=== PATIENT | male | born 1950 | race Caucasian/White ===

== ENCOUNTER 2017-12-05 13:54 | Inpatient (IN) | payer MEDICARE, OTHER ==
[~2017-12-05] VITALS: Ht 182.9 cm; Wt 77.3 kg
[2017-12-05 14:30] LABS: BASOPHILS % (AUTO) 0.2 % (0-1); EOSINOPHILS # (AUTO) 0.2 X10'3 (0-0.9); EOSINOPHILS % (AUTO) 2.1 % (0-6); HEMATOCRIT 36.3 % (42.0-52.0); HEMOGLOBIN 12.4 g/dl (14.0-17.9); LYMPHOCYTES % (AUTO) 8.5 % (21-51); MEAN CORPUSCULAR HEMOGLOBIN 29.8 PG (27.0-31.0); MEAN CORPUSCULAR HGB CONC 34.1 % (33.0-36.5); MEAN CORPUSCULAR VOLUME 87.4 FL (78-98); MEAN PLATELET VOLUME 7.5 FL (7.4-10.4); MONOCYTES # (AUTO) 0.7 X10'3 (0-0.9); MONOCYTES % (AUTO) 5.8 % (2-12); NEUTROPHILS # (AUTO) 9.6 X10'3 (1.8-7.7); NEUTROPHILS % (AUTO) 83.4 % (42-75); PLATELET COUNT 258 X10'3 (140-440); RED BLOOD COUNT 4.15 X10'6 (4.70-6.10); RED CELL DISTRIBUTION WIDTH 13.4 % (11.5-14.5); WHITE BLOOD COUNT 11.6 X10'3 (4.5-11.0)
[2017-12-05 14:41] LABS: PARTIAL THROMBOPLASTIN TIME 24 SECONDS (22-32); PROTHROMBIN TIME 10.1 SECONDS (9.0-12.0)
[2017-12-05 14:46] LABS: ALANINE AMINOTRANSFERASE 42 U/L (12-78); ALBUMIN/GLOBULIN RATIO 1.1 (1.1-1.5); ALKALINE PHOSPHATASE 113 IU/L (46-116); ANION GAP 11 (8-16); ASPARTATE AMINO TRANSFERASE 61 U/L (10-37); BILIRUBIN,TOTAL 0.2 MG/DL (0.1-1.0); BLOOD UREA NITROGEN 32 MG/DL (7-18); CALCIUM 8.7 MG/DL (8.5-10.1); CHLORIDE 105 MMOL/L (99-107); CREATININE 2.28 MG/DL (0.60-1.10); GLUCOSE 112 MG/DL (70-104); POTASSIUM 3.8 MMOL/L (3.5-5.1); SODIUM 140 MMOL/L (135-145); TOTAL CARBON DIOXIDE 23.8 MMOL/L (24-32); TOTAL PROTEIN 7.6 G/DL (6.4-8.2); eGFR 29 ML/MIN
[2017-12-05] MEDS ORDERED: magnesium hydroxide 30ml (MOM) UD suspension PO PRN (16:10)
[2017-12-05] MEDS ORDERED: aspirin 81mg tablet.DR PO ONE (16:10)
[2017-12-05] MEDS ORDERED: ondansetron/PF 4mg/2ml inj IV PRN (16:10)
[2017-12-05] MEDS ORDERED: morphine 4 MG/ML inj SYRINge IV PRN (16:10)
[2017-12-05] MEDS ORDERED: mag hydrox/Alum hydrox/simeth 30ml oral suspension PO PRN (16:10)
[2017-12-05] MEDS ORDERED: acetaminophen 325mg tablet PO PRN (16:10)
[2017-12-05] MEDS: pantoprazole 40mg Tablet.DR PO SCH (16:20)
[2017-12-05] MEDS ORDERED: DOCU-261 PO (17:18)
[2017-12-05] MEDS ORDERED: OXYB5TAB11 PO (17:18)
[2017-12-05] MEDS ORDERED: LISI1TAB11 PO (17:18)
[2017-12-05] MEDS ORDERED: ASPI81TA52 PO (17:18)
[2017-12-05] MEDS ORDERED: MELO-102 PO (17:18)
[2017-12-05] MEDS ORDERED: PRAM0.253 PO (17:18)
[2017-12-05] MEDS ORDERED: CYCL-394 PO (17:18)
[2017-12-05] MEDS ORDERED: CITA-278 PO (17:18)
[2017-12-05] MEDS ORDERED: OMEP40CA37 PO (17:18)
[2017-12-05] MEDS ORDERED: ATOR80TA PO (17:18)
[2017-12-05 18:00] VITALS: BP 137/89
[2017-12-05] MEDS: heparin, porcine 5000 units/ml vial SQ SCH (19:32)
[2017-12-05] MEDS: carVEDilol 3.125mg tablet PO SCH (19:40)
[2017-12-05] MEDS: normal saline 1000ml 1,000 ML IV SCH (21:17)
[2017-12-05 22:00] VITALS: BP 135/72
[2017-12-06] MEDS: morphine 4 MG/ML inj SYRINge IV PRN ×3 (00:26→07:31)
[2017-12-06 02:00] VITALS: BP 115/74
[2017-12-06] MEDS: normal saline 1000ml 1,000 ML IV SCH ×2 (02:07→12:07)
[2017-12-06 02:09] LABS: BASOPHILS % (AUTO) 0.3 % (0-1); EOSINOPHILS # (AUTO) 0.2 X10'3 (0-0.9); EOSINOPHILS % (AUTO) 2.7 % (0-6); HEMATOCRIT 31.3 % (42.0-52.0); HEMOGLOBIN 10.8 g/dl (14.0-17.9); LYMPHOCYTES # (AUTO) 1.7 X10'3 (1.1-4.8); LYMPHOCYTES % (AUTO) 23.8 % (21-51); MEAN CORPUSCULAR HEMOGLOBIN 29.9 PG (27.0-31.0); MEAN CORPUSCULAR HGB CONC 34.4 % (33.0-36.5); MEAN CORPUSCULAR VOLUME 86.9 FL (78-98); MEAN PLATELET VOLUME 7.5 FL (7.4-10.4); MONOCYTES # (AUTO) 0.7 X10'3 (0-0.9); MONOCYTES % (AUTO) 9.1 % (2-12); NEUTROPHILS # (AUTO) 4.6 X10'3 (1.8-7.7); NEUTROPHILS % (AUTO) 64.1 % (42-75); PLATELET COUNT 217 X10'3 (140-440); RED BLOOD COUNT 3.61 X10'6 (4.70-6.10); RED CELL DISTRIBUTION WIDTH 13.6 % (11.5-14.5); WHITE BLOOD COUNT 7.2 X10'3 (4.5-11.0)
[2017-12-06 02:25] LABS: ALBUMIN 3.2 G/DL (3.4-5.0); ANION GAP 10 (8-16); BLOOD UREA NITROGEN 33 MG/DL (7-18); BUN/CREATININE RATIO 15.9 (5.4-32.0); CHLORIDE 107 MMOL/L (99-107); CREATININE 2.07 MG/DL (0.60-1.10); GLUCOSE 107 MG/DL (70-104); POTASSIUM 3.8 MMOL/L (3.5-5.1); SODIUM 142 MMOL/L (135-145); TOTAL CARBON DIOXIDE 24.8 MMOL/L (24-32); eGFR 32 ML/MIN
[2017-12-06 06:00] VITALS: BP 135/85
[2017-12-06] MEDS ORDERED: aspirin 81mg tablet.DR PO SCH (08:00)
[2017-12-06] MEDS ORDERED: atorvastatin 20mg tablet PO SCH (08:00)
[2017-12-06] MEDS ORDERED: pramipexole 0.25mg tablet PO ONE (08:45)
[2017-12-06] MEDS: carVEDilol 3.125mg tablet PO SCH (09:00)
[2017-12-06] MEDS: heparin, porcine 5000 units/ml vial SQ SCH (09:02)
[2017-12-06] MEDS: pantoprazole 40mg Tablet.DR PO SCH (09:04)
[2017-12-06 11:00] VITALS: BP 125/73
[2017-12-06] MEDS ORDERED: PANT-47 PO (11:32)
[2017-12-06] MEDS ORDERED: pramipexole 0.25mg tablet PO SCH (21:00)
== END 2017-12-06 13:25 | disposition home or self-care (01) | DRG 204 ==
LOC: ER 13:55 → ED HOLD 16:07 → CANBEDREQ 17:05 → PCU 3S 18:05
PROVIDERS: ADMIT Family Medicine; ATTEND Family Medicine
PROC: CB121ZZ Planar Nuclear Medicine Imaging of Lungs and Bronchi using Technetium 99m (Tc-99m) (ICD-10-PCS; principal; 2017-12-06)
DX: R07.81 Pleurodynia (principal); I13.0 Hypertensive heart and chronic kidney disease with heart failure and stage 1 through stage 4 chronic kidney disease, or unspecified chronic kidney disease; F12.90 Cannabis use, unspecified, uncomplicated; G89.4 Chronic pain syndrome; I50.9 Heart failure, unspecified; K44.9 Diaphragmatic hernia without obstruction or gangrene; N18.9 Chronic kidney disease, unspecified; N40.0 Benign prostatic hyperplasia without lower urinary tract symptoms; F32.9 Major depressive disorder, single episode, unspecified; M54.30 Sciatica, unspecified side; M54.2 Cervicalgia; M54.9 Dorsalgia, unspecified; Z79.899 Other long term (current) drug therapy; Z79.82 Long term (current) use of aspirin; Z87.891 Personal history of nicotine dependence
CPT/HCPCS: 36415; 71045; 71250; 78582; 80048; 80053; 83880; 84484; 85025; 85610; 85730; 87070; 93005; 93306; A9539; A9540; J1644; J2270; J7030

== ENCOUNTER 2018-07-31 15:33 | Emergency (ER) | payer MEDICARE, OTHER ==
[~2018-07-31] VITALS: Ht 185.4 cm; Wt 81.8 kg
[~2018-07-31 15:33] MED LIST: ASPI81TA52 PO; ATOR80TA PO; CITA-278 PO; CYCL-394 PO; DOCU-261 PO; LISI1TAB11 PO; OXYB5TAB11 PO; PANT-47 PO; PRAM0.253 PO
[2018-07-31 16:38] VITALS: BP 131/77
[2018-07-31] MEDS ORDERED: LIDOcaine 1% w/epiNEPHrine 1:200,000 30ml vial IM ONE (17:00)
[2018-07-31] MEDS ORDERED: ibuprofen tablet 400 MG TABLET PO ONE (17:00)
[2018-07-31] MEDS ORDERED: TETanus/Pertussis (Acell)/Diphther VAC/PF (Tdap-Adult) 0.5ml syringe IM ONE (17:00)
[2018-07-31] MEDS ORDERED: HYDROcodone/acetaminophen 10/325mg tab PO ONE (17:20)
[2018-07-31] MEDS ORDERED: HYDR-4353 PO (18:03)
[2018-07-31] MEDS ORDERED: CEPH250T PO (18:03)
== END 2018-07-31 19:28 | disposition home or self-care (01) ==
LOC: ER 15:33
DX: S62.634A Displaced fracture of distal phalanx of right ring finger, initial encounter for closed fracture (principal); S62.632A Displaced fracture of distal phalanx of right middle finger, initial encounter for closed fracture; S61.214A Laceration without foreign body of right ring finger without damage to nail, initial encounter; S61.212A Laceration without foreign body of right middle finger without damage to nail, initial encounter; I11.0 Hypertensive heart disease with heart failure; I50.9 Heart failure, unspecified; G89.29 Other chronic pain; Z79.82 Long term (current) use of aspirin; Z79.899 Other long term (current) drug therapy; Z98.890 Other specified postprocedural states; W18.39XA Other fall on same level, initial encounter; Y93.89 Activity, other specified; Y92.89 Other specified places as the place of occurrence of the external cause; Y99.8 Other external cause status
CPT/HCPCS: 12002; 29130; 73130; 90471; 90715; 99283; J3490